=== PATIENT | male | born 1995 | race Caucasian/White ===

== ENCOUNTER 2024-08-16 17:46 | Emergency (ER) | payer BC, SELFPAY ==
--- NOTE | ~2024-08-16 | CT_ITS ---
CLINICAL HISTORY: LLQ pain CT abdomen and pelvis with contrast Comparison: None Findings: No consolidation or effusion. Hepatic steatosis noted. Diffuse small bowel and distal colonic mural thickening, can be seen with mild enterocolitis. Colonic diverticulosis without diverticulitis. The bones are intact. IMPRESSION: Possible mildly diffuse enterocolitis. This document has been electronically signed by: Henrry Cote MD on 08/16/2024 23:04:28
[2024-08-16 17:55] VITALS: BP 156/87; PULSE 88; RESP 16; TEMP 37.1; O2SAT 98; BMI 30.8
--- NOTE | 2024-08-16 18:12 | ED.ABDPAIN ---
HPI - Abdominal Pain General Chief Complaint: Abdominal Pain Stated Complaint: left side stomach lump-UC sent for a CT Time Seen by Provider: 08/16/24 21:32 Source: patient Mode of arrival: ambulatory Limitations: no limitations History of Present Illness ED Provider: SUNITHA HPI narrative: 28 yo male no sig PMH hx of possible IBS prior appendectomy here with c/o LLQ pain since yesterday but no change in stool, no n/v or fevers. He has pain when he walks a little bit but otherwise is okay. He is eating and drinking. No GIB symptoms. He has not had this before. He has not seen a GI doctor MD elicited complaint: abdominal pain Onset (ago): day(s) (1) Pain Consistency: intermittent Location: LLQ Severity: mild Quality: aching Radiation: none Migration to: no migration Exacerbating factors: movement Relieving factors: nothing Associated symptoms: other (loose stools) Related Data Allergies Allergy/AdvReac Type Severity Reaction Status Date / Time amoxicillin Allergy Anaphylaxis Verified 08/16/24 18:01 Penicillins Allergy Anaphylaxis Verified 08/16/24 18:01 Sulfa (Sulfonamide Allergy Diarrhea Verified 08/16/24 18:01 Antibiotics) Review of Systems Review of Systems Constitutional : No Weight loss, No Fever, No Chills ENT/Mouth : No sore throat, No Rhinorrhea Eyes: No Swelling, No Redness Cardiovascular : No Chest Pain, No SOB, NoEdema Respiratory : No Cough, No Sputum, No Wheezing Gastrointestinal : no Nausea, no Vomiting, no Diarrhea, positive abdominal Pain, No Hematochezia, No Melena Genitourinary : No Dysuria, No Urinary Frequency, No Hematuria, No Urgency Musculoskeletal : No joint pain, No Myalgias, No Joint Swelling Skin : No Skin Lesions, No rash Neuro : No Weakness, No Numbness, No Dizziness, No Headache Psych : No Anxiety/Panic, No Depression All other systems reviewed and are negative. [facility] Past Medical History Attestation statement: The following information was validated with the patient. Source: old records reviewed Medical History (Updated 08/16/24 @ 23:21 by Shanda Braxton DO) No pertinent past medical history Surgical History S/P appendectomy Social History Social History Smoked in Last 30 Days: Yes Use of substances other than those prescribed or required for medical reasons: Yes Substance Use Type: Marijuana Advance Directives: No Advance Directives Information Provided: No Do you have a plan to hurt others: No Plan Physical Exam ED Vital Signs: Vital Signs - 24 hr 08/16/24 17:55 08/16/24 21:44 Temperature 98.7 F 98.2 F Pulse Rate 88 62 Respiratory Rate 16 18 Blood Pressure 156/87 H 118/75 Pulse Oximetry 98 100 Oxygen Delivery Method Room Air Room Air BMI result Body Mass Index 30.8 Appearance: Alert. Oriented X3. No acute distress. Eyes: Pupils equal, round and reactive to light. ENT: Pharynx normal. Neck: Normal inspection. Neck supple. CVS: Normal heart rate and rhythm. Pulses normal. Respiratory: No respiratory distress. Breath sounds normal. Abdomen: Soft and very mild ttp with LLQ deep palpation but no rebound or guarding Skin: Skin warm and dry. Normal skin color. Normal skin turgor. Extremities: No lower extremity edema. No calf ttp Neuro: Oriented X 3. No motor deficit. No sensory deficit. CN2-12 intact Course Course Course Narrative: This is an RME performed by Shavonne Hwang CNP: Additional HPI, ROS, PE not included below will be deferred to primary provider. Patient is a 28-year-old male presents emergency department for evaluation of left lower quadrant abdominal pain, onset was yesterday, reports that he feels a palpable lump to this area. Denies associated fevers, chills, nausea, vomiting, diarrhea. Medical Decision Making Medical Decision Making [facility] Narrative: 28 yo male no sig PMH other than prior appendicitis here with c/o LLQ pain yesterday has chronic loose stools no fevers, no symptoms no n/v, denies testicular issues at this time basic labs, CT scan for renal colic/diverticulitis, overall abdomen is benign no rebound or guarding Differential Diagnosis Differential Diagnoses: The differential diagnosis associated with the presentation includes diverticulitis, renal colic, constipation Admission/Observation Consideration of admission/observation: Escalation of care including admission/observation considered other than LFTs and possible mild enterocolitis will refer to GI hold abx no fevers and no wbc count no tachycardia no GIB symptoms he is not toxic Lab Data [facility] Lab Attestation statement: I reviewed the patient's lab results. 08/16/24 18:27 08/16/24 18:27 Labs: Lab Results 08/16/24 08/16/24 Range/Units 18:27 21:47 WBC 5.4 (4.8-10.8) X10*3/uL RBC 5.02 (4.60-5.80) X10*6/uL Hgb 15.3 (14.0-18.0) g/dl Hct 43.1 (42.0-52.0) % MCV 85.9 (80.0-98.0) fL MCH 30.5 (27.0-33.0) pg MCHC 35.5 (31.0-36.0) g/dl RDW 12.2 (11.0-16.0) % Plt Count 262 (160-400) X10*3/uL MPV 10.0 (9.4-12.4) fL Immature Gran % (Auto) 0.4 (0.0-0.4) % Neut % (Auto) 58.1 (45-73) % Lymph % (Auto) 29.2 (20-40) % [place] % (Auto) 9.5 (2-11) % Eos % (Auto) 2.2 (0-4) % Baso % (Auto) 0.6 (0-2) % Lymph # (Auto) 1.6 (1.2-4.9) X10*3/uL [place] # (Auto) 0.5 (0.1-1.2) X10*3/uL Eos # (Auto) 0.1 (0.0-0.4) X10*3/uL Baso # (Auto) 0.0 (0.0-0.2) X10*3/uL Abs Immat Gran (auto) 0.02 (0.00-0.03) X10*3/uL Absolute Neuts (auto) 3.1 (2.0-8.3) x10*3/uL Absolute Nucleated RBC 0.000 (0.0-0.012) X10*3/uL Nucleated RBC % (auto) 0.0 (0.0-0.2) /100WBC Sodium 143 (135-145) mmol/L Potassium 4.2 (3.3-5.1) mmol/L Chloride 108 (96-108) mmol/L Carbon Dioxide 28 (22-29) mmol/L Anion Gap 11 L (12-20) BUN 12 (9-16) mg/dL Creatinine 0.89 (0.5-1.4) mg/dL Estim Creat Clear Calc 160.8 Estimated GFR > 60 Random Glucose 100 (60-115) mg/dL Calcium 9.7 (8.4-10.2) mg/dL Total Bilirubin 0.2 (0.0-1.0) mg/dL Direct Bilirubin < 0.2 (0.0-0.5) mg/dL AST 45 H (5-37) U/L ALT 107 H (0-40) U/L Alkaline Phosphatase 60 (39-117) U/L Total Protein 7.7 (6.5-8.0) g/dL Albumin 4.7 (3.5-5.0) g/dL Urine Color Yellow Urine Appearance Clear Urine pH 5.5 (5.0-9.0) Ur Specific [place] 1.025 (1.005-1.025) Urine Protein Negative (Neg-Trace) mg/dL Urine Glucose (UA) Negative (Negative) mg/dL Urine Ketones Negative (Negative) mg/dL Urine Blood Negative (Negative) Urine Nitrite Negative (Negative) Ur Leukocyte Esterase Negative (Negative) Independent Interpretation I performed an independent interpretation of an: CT Scan (enterocolitis) Radiology Impression Discussion of test interpretation with radiology: I have reviewed the radiologist's reading. Independent Historian Clinical information obtained from an independent historian. History obtained from or confirmed by: Friend Prescription Management I considered prescription management with: Pain Medication, Antibiotic and Other Medications Administered Discontinued Medications Generic Name Dose Route Start Last Admin Trade Name Freq PRN Reason Stop Dose Admin Iohexol 85 ml 08/16/24 22:47 08/16/24 22:47 Iohexol 350 Mg/Ml 100 Ml Infus..Btl IV 08/16/24 22:48 85 ml ONCE ONE Administration Discharge Plan Discharge Clinical Impression: Enterocolitis Abdominal pain Qualifiers: Abdominal location: left lower quadrant Qualified Code(s): R10.32 - Left lower quadrant pain Patient Disposition: Home, Self-Care Instructions: Abdominal Pain (ED), Colitis (ED) Additional Instructions: labs reassuring other than liver enzymes elevated repeat with doctor on Monday avoid tylenol CT scan shows inflammation of intestine and colon this should be self limited RETURN for worsening pain, fevers, vomiting, bloody stools or any other concerns follow up with GI Referrals: [facility] [place] G[facility]ology Services [Provider Group] (call to schedule appointment) Print Language: Greek
[2024-08-16 18:31] LABS: MANUAL DIFF FLAG NO
[2024-08-16 18:33] LABS: Basophils Percent Auto 0.6 % (0-2); Eosinophils Absolute Auto 0.1 X10*3/uL (0.0-0.4); Eosinophils Percent Auto 2.2 % (0-4); Hematocrit 43.1 % (42.0-52.0); Hemoglobin 15.3 g/dl (14.0-18.0); Imm Gran Abs Auto 0.02 X10*3/uL (0.00-0.03); Imm Gran Pct Auto 0.4 % (0.0-0.4); Lymphocytes Absolute Auto 1.6 X10*3/uL (1.2-4.9); Lymphocytes Percent Auto 29.2 % (20-40); Mean Corpuscular HGB Conc 35.5 g/dl (31.0-36.0); Mean Corpuscular Hemoglobin 30.5 pg (27.0-33.0); Mean Corpuscular Volume 85.9 fL (80.0-98.0); Monocytes Absolute Auto 0.5 X10*3/uL (0.1-1.2); Monocytes Percent Auto 9.5 % (2-11); Neutrophils Absolute Auto 3.1 x10*3/uL (2.0-8.3); Neutrophils Percent Auto 58.1 % (45-73); Platelet Count 262 X10*3/uL (160-400); Red Blood Count 5.02 X10*6/uL (4.60-5.80); Red Cell Distribution Width 12.2 % (11.0-16.0); White Blood Count 5.4 X10*3/uL (4.8-10.8)
[2024-08-16 18:53] LABS: Alanine Aminotransferase 107 U/L (0-40); Albumin Level 4.7 g/dL (3.5-5.0); Anion Gap 11 (12-20); Aspartate Amino Transferase 45 U/L (5-37); Bilirubin Direct < 0.2 mg/dL (0.0-0.5); Bilirubin Total 0.2 mg/dL (0.0-1.0); Blood Urea Nitrogen 12 mg/dL (9-16); Calcium 9.7 mg/dL (8.4-10.2); Carbon Dioxide 28 mmol/L (22-29); Chloride 108 mmol/L (96-108); Creatinine Clr Calc Pharmacy 160.8; Estimated Glomerular Filt Rate > 60; Glucose Random 100 mg/dL (60-115); Potassium 4.2 mmol/L (3.3-5.1); Sodium 143 mmol/L (135-145); Total Protein 7.7 g/dL (6.5-8.0)
[2024-08-16 19:40] LABS: Alkaline Phosphatase 60 U/L (39-117)
[2024-08-16 21:44] VITALS: BP 118/75; PULSE 62; RESP 18; TEMP 36.8; O2SAT 100
--- NOTE | 2024-08-16 21:49 | MHC.EDTECH ---
Patient brought in from the waiting room,changed into hospital attire,vitals taken,patient ambulated to the bathroom with a steady gait,urine sample obtained and sent to lab
[2024-08-16 21:57] LABS: Appearance Urine Clear; Color Urine Yellow; Glucose Urine UA Negative (Negative); Leukocyte Esterase Urine Negative (Negative); Nitrite Urine Negative (Negative); PH 5.5 (5.0-9.0); Specific Gravity - Urine 1.025 (1.005-1.025); Urine Blood Negative (Negative); Urine Ketones Negative (Negative); Urine Protein Negative (Neg-Trace)
--- NOTE | 2024-08-16 22:20 | PC.NURSE ---
this rn placed 20g iv in r ac pt tolerated well awaiting to be taken to CT scan
[2024-08-16] MEDS: iohexoL 350 MG/ML 100 ML INFUS..BTL 85 ML IV (22:47)
[2024-08-16 23:30] VITALS: BP 119/74; PULSE 62; RESP 16; TEMP 36.6; O2SAT 98
--- NOTE | 2024-08-16 23:34 | PC.NURSE ---
iv removed at discharge pt calm and cooperative pt at bedside. pt verbalized understanding of discharge plan
[2024-08-16 23:35] VITALS: BP 119/74; PULSE 62; RESP 16; TEMP 36.6; O2SAT 98
== END 2024-08-16 23:36 | disposition home or self-care (01) ==
PROVIDERS: Nurse Practitioner Family; Emergency Provider Emergency Medicine
DX: K52.9 Noninfective gastroenteritis and colitis, unspecified (principal); R10.2 Pelvic and perineal pain; R10.32 Left lower quadrant pain; Z79.899 Other long term (current) drug therapy
CPT/HCPCS: 36415; 74177; 80048; 80076; 81003; 85025; 99284; Q9967

== ENCOUNTER → 2024-08-16 21:56 | Outpatient (BNV) | payer BC, SELFPAY | PROVIDERS: Emergency Provider Emergency Medicine; Visit Provider Radiology Diagnostic Radiology | DX: R10.32 Left lower quadrant pain (principal) | CPT/HCPCS: 74177 ==

== ENCOUNTER 2025-06-05 09:19 | Outpatient (AMB) | payer BC, SELFPAY ==
--- NOTE | 2025-06-05 09:46 | A.OFFPC_ITS ---
Vital Signs 06/05/25 09:53 Height 6 ft 2.8 in Weight 240 lb BMI 30.2 BP 122/80 Blood Pressure Location Lt brachial Position Sitting Respiration 16 Pulse 72 Pulse Source Pulse Oximeter Temp 97.7 F Temp Source Temporal Artery Scan Pulse Oximetry (%) 96 Oxygen Delivery Method Room Air Intake Visit Reasons: Establish Care Transportation Driver Required: No Accompanied by: Self / Same As Patient Allergies amoxicillin Allergy (Verified 06/05/25 10:11) Anaphylaxis Penicillins Allergy (Verified 06/05/25 10:11) Anaphylaxis Sulfa (Sulfonamide Antibiotics) Allergy (Verified 06/05/25 10:11) Diarrhea Medication List - Last Reconciled 06/05/25 by Iwona Lombardo PA-C escitalopram oxalate 5 mg PO DAILY famotidine 40 mg PO BEDTIME meloxicam 15 mg PO DAILY propranolol 10 mg PO BID PRN sucralfate PO QID Tobacco use date assessed: 06/05/25 Dental Screening Dental Screen Date: 06/05/25 Did you have a dental visit in the last 12 months?: Yes Did you have a dental problem in the last 6 months where you did not have access to dental care?: No Was dental information given to patient?: Patient has dentist HPI Establish Care HPI Details The patient is a 29-year-old male presenting for a new patient appointment and evaluation of gastrointestinal issues. He reports having his last physical within the past year. In August, the patient went to the [facility] for left-sided abdominal pain associated with a palpable bump. At that time, it was thought to be related to food poisoning, and labs revealed elevated liver enzymes, with an AST of 45 and an ALT of 107. Follow-up blood work showed the ALT decreased to 84 before rising again to 102 in January, while the AST normalized to 32 before increasing to 41. A CT scan of the abdomen and pelvis from August showed a fatty liver and possible mild diffuse enterocolitis. The patient has a lifelong history of chronic diarrhea, which has seen some improvement with psyllium, though his bowel movements remain abnormal and are sometimes skinny. He has been evaluated by a metal container maker at [facility] and underwent a colonoscopy in November, which was clear and ruled out Crohn's disease, with a recommended 15-year follow-up interval. He also had chest pain radiating to his shoulder, consistent with GERD, which has resolved since starting famotidine and sucralfate. 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 His current medications are escitalopram, famotidine, meloxicam, propranolol, and sucralfate. Lab work from January showed a slightly elevated LDL of 140. 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 - Marital Status: for almost 10 years. - Diet: Acknowledges an [place] diet of greasy foods, which may contribute to his fatty liver. - Family History: Reports a history of a lcoholism on his father's side of the family. [facility] Medical History (Updated 06/05/25 @ 11:31 by Iwona Lombardo PA-C) Healthcare maintenance Lipoma of abdominal wall Urinary hesitancy GERD (gastroesophageal reflux disease) Elevated liver enzymes Diarrhea Left sided abdominal pain No pertinent past medical history Surgical History History of colonoscopy (~11/2024) S/P appendectomy Family History Mother No problems noted. Father BP (high blood pressure) High cholesterol Social History Housing: Apartment Alcohol intake: current Alcohol intake frequency: a few times a month Patient Tobacco Use Status: Former Tobacco user service: No Current occupational status: employed Cognitive needs: No Hearing needs: No Vision needs: No Questionnaire PHQ-9 Over the last 2 weeks, how often have you been bothered by any of the following problems? 1. Little interest or pleasure in doing things: not at all 2. Feeling down, depressed, or hopeless: not at all 3. Trouble falling or staying asleep, or sleeping too much: not at all 4. Feeling tired or having little energy: not at all 5. Poor appetite or overeating: not at all 6. Feeling bad about yourself - or that you are a failure or have let yourself or your family down: not at all 7. Trouble concentrating on things, such as reading the newspaper or watching television: not at all 8. Moving or speaking so slowly that other people could have noticed. Or the opposite - being so fidgety or restless that you have been moving around a lot more than usual: not at all 9. Thoughts that you would be better off or of hurting yourself in some way: not at all Total score: 0 Depression Screening Interpretation: Negative Depression Screening Done: Yes 38046 - PHQ-9 Billing: Yes Source: Developed by Drs. Mike Foster, Mitali Reece, Kristopher Garcia and colleagues, with an educational boaz from [employer]. Thrive Questionnaire Date Thrive assessed: 06/05/25 I am a: Patient What is your living situation today?: I have a steady place to live Within the past 12 months, did the food you bought not last and you didn't have the money to get more?: Never true Within the past 12 months, did you worry whether your food would run out before you got money to buy more?: Never true Do you have trouble paying for medicines?: No Do you have trouble getting transportation to medical appointments?: No Do you have trouble paying your heating and electricity bill?: No Do you have trouble taking care of your child, family member or friend?: No Do you have trouble with day-to-day activities such as bathing, preparing meals, shopping, managing finances, etc.?: No Are you currently unemployed and looking for a job?: No Are you interested in more education?: No Please select the resources that you would like help with: None THRIVE Score: 0 AUDIT C Alcohol Use Questionnaire (AUDIT-C) 1. How often do you have a drink containing alcohol?: 2-4 times a month 2. How many drinks containing alcohol do you have on a typical day when you are drinking?: 1 or 2 3. How often do you have six or more drinks on one occasion?: Never Total Score: 2 Score Reviewed/Action Taken: No TINY-7 AMB Questionnaire TINY-7 Date TINY - 7 assessed: 06/05/25 Feeling nervous, anxious, or on edge: 3 = Nearly every day Not being able to stop or control worryin = Several days Worrying too much about different things: 0 = Not at all Trouble relaxin = Several days Being so restless that it is hard to sit still: 3 = Nearly every day Becoming easily annoyed or irritable: 1 = Several days Feeling afraid as if something awful might happen: 0 = Not at all Total TINY-7 score (0-4 normal; 5-9 mild; 10-14 moderate; 15-21 severe): 9 Source: Developed by Drs. Mike Foster, Mitali Reece, Kristopher Garcia and colleagues, with an educational boaz from [employer]. TINY-7 Assessment Billing TINY-7 Assessment Tool: TINY-7 Assessment 67202 Review of Systems Const Details: - CONSTITUTIONAL: Denies unintentional weight loss. - GASTROINTESTINAL: Reports left-sided abdominal pain with a palpable bump, though the pain has improved. - Reports lifelong chronic diarrhea, with bowel movements that are sometimes skinny. - Denies black or bloody stools. - Reports a history of chest pain radiating to the back of the shoulder, consistent with GERD, which has improved with medication. - GENITOURINARY: Reports sometimes not feeling able to completely empty his bladder, particularly at night. - MUSCULOSKELETAL: Reports chronic inflammation in both hips. All systems reviewed & are unremarkable except as noted in HPI and below Physical exam (Primary Care) Vital Signs: Last Vital Signs Temp 97.7 F 06/05/25 09:53 Pulse 72 06/05/25 09:53 Resp 16 06/05/25 09:53 BP 122/80 06/05/25 09:53 Pulse Ox 96 06/05/25 09:53 Oxygen Delivery Method Room Air 06/05/25 09:53 Care Plan Goal for BP management: <140/90 at Goal BMI result Body Mass Index 30.2 BMI Assessment/Plan discussion: High BMI High, discussed plan: lifestyle, weight reduction, dietary, physical activity, alcohol moderation and other Tobacco/Smoking Status: Tobacco use Status Tobacco use date assessed 06/05/25 06/05/25 09:51 Patient Tobacco Use Status Former Tobacco user 06/05/25 10:01 PHQ-9: PHQ-9 Score PHQ-9: Total score 0 06/05/25 09:51 Depression Screening Interpretation: Negative Thrive Assessment: Date of Thrive Assessment Date Thrive assessed 06/05/25 06/05/25 09:51 Const Other: Appearance: Alert. Oriented X3. No acute distress. Head: Normal external exam. Normocephalic. Atraumatic. Eyes: Pupils are equal, round, and reactive to light. Extraocular movements intact. Conjunctiva and sclera normal. Eyelids normal. Ears: External auditory canal normal. Tympanic membranes normal. Throat: Pharynx normal. Uvula midline. Moist mucous membranes. Neck: Normal inspection. Neck supple. Full range of motion. No adenopathy. Thyroid Normal. No meningeal signs. No neck mass noted. Cardiovascular: Normal heart rate and rhythm. Heart sound normal. No murmurs noted. Pulses normal throughout. Respiratory: No respiratory distress. Painless inspiration. Breath sounds normal. No wheezes/rales/rhonchi noted. Chest nontender. No accessory muscle usage noted or decreased air movement noted. Abdomen: Soft and nontender. Bowel sounds normal in all 4 quadrants. No distention noted. No organomegaly noted. A bump noted on the left side of the abdomen, possibly a small cyst under the fat tissue muscle. Back: No costovertebral angle tenderness. Full range of motion noted. Skin: Skin warm and dry. Normal skin color. Normal skin turgor. No rashes/lesions/lacerations noted. Extremities: No lower extremity edema. Extremities exhibit normal range of motion. Neuro: Oriented X 3. No motor deficit. No sensory deficit. Reflexes normal. Office Procedures Flu Questionnaire Does the patient have a severe egg allergy?: No Does the patient have severe life threatening allergies?: No Does the patient have a fever or illness today?: No Has the patient ever had Guillain-Snelling Syndrome?: No Has the patient ever had any past reaction to a flu shot?: No Immunizations Fluarix [id number] (PF) 45 mcg (15 mcg x 3)/0.5 mL IM syringe Performing Provider: Iwona Lombardo PA-C [facility] [place] [facility] Documented (not given) by: DAVID Acevedo on 06/05/25 10:01 Reason Not Given: Received Previously Results Reviewed Results Reviewed: - Labs (August): CBC, electrolytes, and kidney function were normal. - AST was 45 (normal <37) and ALT was 107 (normal 40-50). - Bilirubin and alkaline phosphatase were normal. - Labs (Follow-up post-August): Glucose was slightly high. - ALT was 84 and AST was 32 (normal). - Labs (January): ALT increased to 102 and AST increased to 41. - LDL was 140, non-HDL was 152, total cholesterol was 199, and HDL was 47. - Sodium was slightly high at 145 and anion gap was 19. - Imaging (August): CT of abdomen and pelvis showed fatty liver and possible mild diffuse enterocolitis. - Procedures (November): Colonoscopy was clear, with next one recommended in 15 years. Coding Level of Care Code New Pt Level 4 (83648) Complex EM visit Add On G2211 Diagnoses Elevated liver enzymes R74.8 Diarrhea R19.7 GERD (gastroesophageal reflux disease) K21.9 Urinary hesitancy R39.11 Lipoma of abdominal wall D17.1 Healthcare maintenance Z00.00 Additional Codes PHQ-9 - 01681 - PHQ-9 Billing: Yes ([id number]) TINY-7 Assessment Billing - TINY-7 Assessment Tool: TINY-7 Assessment 26415 ([id number]) Time Spent (min) 60 Assessment & Plan Assessment & Plan (1) Elevated liver enzymes: Code(s): R74.8 - Abnormal levels of other serum enzymes Category: Medical Plan: The patient has fluctuating elevated liver enzymes and a history of fatty liver on a prior CT scan, likely related to diet. The plan is to repeat liver function tests, order a hepatitis panel to rule out infectious causes, and order an abdominal ultrasound to further evaluate the liver. (2) Diarrhea: Code(s): R19.7 - Diarrhea, unspecified Category: Medical Plan: The patient has a lifelong history of diarrhea, and while a colonoscopy was normal, the underlying etiology is still unclear. A stool panel will be ordered to test for celiac disease and other potential causes. (3) GERD (gastroesophageal reflux disease): Code(s): K21.9 - Gastro-esophageal reflux disease without esophagitis Category: Medical Plan: The patient's symptoms of chest pain have responded well to medications prescribed by his metal container maker. He will continue his current regimen of famotidine and sucralfate. (4) Urinary hesitancy: Code(s): R39.11 - Hesitancy of micturition Category: Medical Plan: The patient reports symptoms of incomplete bladder emptying, suggesting possible benign prostatic hyperplasia (BPH). A prostate-specific antigen (PSA) level will be checked, and he will start a trial of Tamsulosin (Flomax) to alleviate his symptoms. (5) Lipoma of abdominal wall: Code(s): D17.1 - Benign lipomatous neoplasm of skin and subcutaneous tissue of trunk Category: Medical Plan: A tender, superficial mass was palpated on the left abdomen, consistent with a lipoma. This area will be further evaluated during the planned abdominal ultrasound. (6) Healthcare maintenance: Code(s): Z00.00 - Encounter for general adult medical examination without abnormal findings Category: Medical Plan: For this new patient visit, baseline non-fasting labs will be ordered, including a magnesium, vitamin B12, vitamin D, thyroid panel, and a diabetes screen. A basic urinalysis will also be performed. A follow-up visit is scheduled in 2-3 months to review the results. Plan Plan Patient was informed and verbally consented to the use of an ambient scribe for clinic note documentation during this visit. 1. Elevated Liver Enzymes/Non-Alcoholic Fatty Liver Disease The patient has fluctuating elevated liver enzymes and a history of fatty liver on a prior CT scan, likely related to diet. The plan is to repeat liver function tests, order a hepatitis panel to rule out infectious causes, and order an abdominal ultrasound to further evaluate the liver. 2. Chronic Diarrhea The patient has a lifelong history of diarrhea, and while a colonoscopy was normal, the underlying etiology is still unclear. A stool panel will be ordered to test for celiac disease and other potential causes. 3. Gastroesophageal Reflux Disease The patient's symptoms of chest pain have responded well to medications prescribed by his metal container maker. He will continue his current regimen of famotidine and sucralfate. 4. Urinary Hesitancy The patient reports symptoms of incomplete bladder emptying, suggesting possible benign prostatic hyperplasia (BPH). A prostate-specific antigen (PSA) level will be checked, and he will start a trial of Tamsulosin (Flomax) to alleviate his symptoms. 5. Abdominal Wall Lipoma A tender, superficial mass was palpated on the left abdomen, consistent with a lipoma. This area will be further evaluated during the planned abdominal ultrasound. 6. Health Maintenance For this new patient visit, baseline non-fasting labs will be ordered, including a magnesium, vitamin B12, vitamin D, thyroid panel, and a diabetes screen. A basic urinalysis will also be performed. A follow-up visit is scheduled in 2-3 months to review the results. I introduced myself and explained the use of an AI scribe for notetaking during the visit. I reviewed the patient's prior lab work and clarified that his liver enzymes were elevated but not to the degree he had initially thought. We discussed the fluctuating nature of his liver enzymes and the finding of fatty liver on his prior CT, noting this could be related to diet. I outlined a plan for further investigation, including repeating liver enzymes, performing a hepatitis panel, checking various baseline levels (magnesium, vitamins, thyroid, prostate), conducting a diabetes screen, and performing a urinalysis and a stool panel. I also ordered an abdominal ultrasound to re-e valuate his liver. I explained that the blood work does not require fasting. We discussed his urinary symptoms, and I recommended a trial of Tamsulosin, which he agreed to try. I offered STD testing, which he declined due to his long-term monogamous marriage. I palpated the bump on his abdomen and reassured him it felt like a superficial lipoma. I recommended a follow-up appointment in approximately 2-3 months to review all results and advised him to call if the ultrasound is not scheduled within a month or if his symptoms worsen. Orders: Orders Magnesium Today Z00.00 - Encounter for general adult medical examination without abnormal findings Vitamin B12 and Folate Today Z00.00 - Encounter for general adult medical examination without abnormal findings Vitamin D 25-OH Total Today Z00.00 - Encounter for general adult medical examination without abnormal findings TSH reflex Free T4 Today Z00.00 - Encounter for general adult medical examination without abnormal findings US abdomen complete Today R10.9 - Unspecified abdominal pain, R19.7 - Diarrhea, unspecified Transglutaminase Ab IgG 1 Day R14.0 - Abdominal distension (gaseous) Transglutaminase IgA 1 Day R14.0 - Abdominal distension (gaseous) Influenza [id number] Immunization Today Z23 - Encounter for immunization Comprehensive Met. Panel Today Z00.00 - Encounter for general adult medical examination without abnormal findings Hepatitis A,B,C Profile Today Z00.00 - Encounter for general adult medical examination without abnormal findings PSA,Total (Free>4and<10) Today Z00.00 - Encounter for general adult medical examination without abnormal findings Hemoglobin A1c Today Z00.00 - Encounter for general adult medical examination without abnormal findings UA CC w/rflx Micro + Cult Today Z00.00 - Encounter for general adult medical examination without abnormal findings GI Panel Today R10.9 - Unspecified abdominal pain, R19.7 - Diarrhea, unspecified Celiac Disease Panel Today R10.9 - Unspecified abdominal pain Patient Instructions: - You may go to the lab for blood work at your convenience; you do not need to fast beforehand. - When you go for your blood work, you will also need to provide a urine sample and a stool sample. - The radiology department will call you to schedule an appointment for an abdominal ultrasound. - If you do not receive a call within one month, please contact our office. - We have prescribed Tamsulosin (Flomax) to help with your urinary symptoms. - Continue taking your current medications for heartburn as prescribed by your metal container maker. - Please schedule a follow-up appointment in about two to three months (around August) to go over your test results. - If your symptoms get worse before your next appointment, please contact us or return to the clinic.
[2025-06-05 09:53] VITALS: BP 122/80; PULSE 72; RESP 16; TEMP 36.5; O2SAT 96; BMI 30.2
--- OUTSIDE RECORDS SUMMARY | 2025-06-05 10:36 | XMS_ITS | Clinical Summary ---
Author Organization [facility] Address [address] [place] [id number] Phone Care Team Providers Care Wagon Winder Name Role Phone Mani Cummings Oh [place] Primary Care Provider [phone] Allergies Active Allergy Reactions Criticality Noted Date Comments Penicillins Rash 12/07/2006 Sulfa (Sulfonamide Antibiotics) Other (See Comments) 06/03/2009 poss serum sickness Medications No known medications Active Problems No known active problems Immunizations Immunization Administration Dates Next Due DTaP, unspecified formulation 12/13/1999 ,06/12/1996,07/04/1995,1994,01/05/1995 HPV,quadrivalent 12/03/2012 Hepatitis A, ped/adol, 2 dose 12/03/2012 Hepatitis B, unspecified formulation 09/28/1995, 01/16/1995,1994 Hib, unspecified formulation 06/12/1996, 05/11/1995,03/10/1995,1994 Influenza quadrivalent nasal 06/02/2012 Influenza, Unspecified Formulation 05/13/2011 MMR 12/13/1999,06/12/1996 Meningococcal MCV4P 05/13/2011,01/18/2007 Polio, Unspecified Formulation 0,05/11/1995,03/10/1995,1994 Tdap 01/23/2006 Varicella 01/02/2013,12/03/1997 Family History Medical History Relation Comments Hyperlipidemia Father Hyperlipidemia Relation Status Comments Father Social History Tobacco Use Types Packs/Day Years Used Date Smoking Tobacco: Every Day Pipe Smokeless Tobacco: Never Alcohol Use Standard Drinks/Week Comments Yes 0 (1 standard drink = 0.6 oz pur e alcohol) Education Answer Date Recorded Are you interested in more education? Not on bao e 12/04/2022 Are you concerned about learning? Not on file 12/04/2022 No 12/04/2022 No 12/04/2022 Digital Access Answer Date Recorded No 12/31/2022 No 12/31/2022 No 12/31/2022 Reliable internet access at home? Not on file 12/31/2022 Device with a working camera? Not on file Sex and Gender Information Value Date Recorded Sex Assigned at Not on file Legal Sex Male 5:21 PM EST Gender Identity Not on file Sexual Orientation Not on file Last Filed Vital Signs Vital Sign Reading Time Taken Comments Blood Pressure 124/78 06/01/2021 12:16 PM EDT Pulse 66 06/01/2021 12:16 PM EDT Temperature 36.3 C (97.4 F) 06/01/2021 12:16 PM EDT Respiratory Rate 18 06/01/2021 12:16 PM EDT Oxygen Saturation 99% 06/01/2021 12:16 PM EDT Inhaled Oxygen Concentration - - Weight 90.7 kg (200 lb) 06/01/2021 12:16 PM EDT Height 190.5 cm (6' 3 ) 06/01/2021 12:16 PM EDT Body Mass Index 25 06/01/2021 12:16 PM EDT Plan of Treatment Upcoming Encounters Date Type Department Care Team (Late st Contact Info) Description 09/11/2025 8:45 AM EST Office Visit [facility] [address] [place] [address] Unknown, Unknown, MD Durham, Tanya Whatley, WINNIE [address] [place] [address] Health Maintenance Due Date Last Done Comments DEPRESSION SCREENING 2006 SMOKING Hx and SMOKELESS TOBACCO SCREENING 11/16/2007 HEPATITIS C SCREENING 2012 HIV ONE-TIME SCREENING (18-65 YEARS) 2012 HEPATITIS A VACCINES (2 of 2 - 2-dose series) 06/04/2013 12/03/2012 PNEUMOCOCCAL VACCINES (0-49 years) (1 of 2 - PCV) 2013 Adult Td,Tdap Booster 01/24/2016 01/23/2006 INFLUENZA VACCINE (#1) 2025 , 06/02/2012, 05/13/2011 COVID-19 VACCINE (2 - season) 2025 06/14/2021 HIB VACCINES Completed 06/12/1996, 12/1994, 03/10/1995, Additional history exists MENINGOCOCCAL VACCINES (ACWY) Completed 05/13/2011, 01/18/2007 MENINGOCOCCAL VACCINES (B) Aged Out N o longer eligible based on patient's age to complete this topic Medical Devices Not on file Insurance [facility] OUT OF STATE PPO [place] OUT OF STATE PPO [employer] [place] OUT OF STATE PPO [place]UE [place] OUT OF STATE PPO [facility] PPO Care Teams Wagon Winder Relationship Specialty Start Date End Date Mani Cummings DO [address] [id number] PCP - General Family Medicine 10/14/24 Additional Source Comments The information contained in this document represents components of the legal health record. It is not the complete legal health record.[facility]
--- OUTSIDE RECORDS SUMMARY | 2025-06-05 10:36 | XMS_ITS | Clinical Summary ---
Author Organization [facility] Address [address] [place] [id number] Phone Care Team Providers Care Supervisor Winding Department Name Role Phone Imtiaz Turner MD Primary Care Provider Unavaila ble Allergies Active Allergy Reactions Criticality Noted Date Comments Penicillin G Sulfa Antibiotics Medications No known medications Active Problems Problem Noted Date Diagnosed Date Dermatitis 03/05/2016 Immunizations Immunization Administration Dates Next Due DTaP 12/13/1999, 6,07/04/1995,03/07,01/05/1995 HPV, Quadrivalent 12/03/2012 Hep A, ped/adol 12/03/2012 Hep B, ped/adol 09/28/1995,01/16/1995,1994 Hib (PRP-T) 06/12/1996, 5,03/10/1995,01/16 IPV 12/13/1999, 5,03/10/1995,01/16 Influenza, injectable,ted valent, preservative free, pediatric 06/02/2012,05/13/2011 MMR 12/13/1999,06/12/1996 Meningococcal Conj (Menactra) MCV4P 05/13/2011,0 01/18/2007 Tdap 01/23/2006 Varicella 01/02/2013,12/03/1997 Social History Tobacco Use Types Packs/Day Years Used Date Smoking Tobacco: Never Assessed Sex and Gender Information Value Date Recorded Sex Assigned at Not on file Legal Sex Male 9:16 AM EST Gender Identity Not on file Sexual Orientation Not on file Last Filed Vital Signs Vital Sign Reading Time Taken Comments Blood Pressure 106/62 01/24/2017 9:15 AM EDT Pulse - - Temperature 36.1 C (97 F) 01/24/2017 9:15 AM EDT Respiratory Rate - - Oxygen Saturation 99% 01/24/2017 9:15 AM EDT Inhaled Oxygen Concentration - - Weight 88.6 kg (195 lb 4 oz) 01/24/2017 9:15 AM EDT Height 186.1 cm (6' 1.25 ) 10/10/2012 12:[address] Body Mass Index - - Plan of Treatment Health Maintenance Due Date Last Done Comments HPV Vaccines (2 - Male 3-dose series) 12/31/2012 12/03/2012 Hepatitis A Vaccines (2 of 2 - 2-dose series) 06/04/2013 12/03/2012 DTaP,Tdap,and Td Vaccines (7 - Td or Tdap) 01/24/2016 01/23/2006, 12/13/1999, 06/12/1996, Additional history exists Influenza Vaccines (#1) 2025 06/02/2012, 05/13 COVID-19 Vaccine ( season) 2025 Hepatitis B Vaccines Completed 09/28/1995, 01/16/1995, 1994 HIB Vaccines Completed 06/12/1996, 12/1994, 03/10/1995, Additional history exists IPV Vaccines Completed 12/13/1999, 12/1994, 03/10/1995, Additional history exists MMR Vaccines Completed 12/13/1999, 06/12/1996 Meningococcal Vaccine Completed 05/13/2011, 007 Varicella Vaccines Completed 01/02/2013, 12/03/1997 Men B Vaccine Aged Out No longer elig ible based on patient's age to complete this topic Pneumococcal Vaccine Aged Out No long er eligible based on patient's age to complete this topic Insurance [email or web address] Care Teams Supervisor Winding Department Relationship Specialty Start Date End Date Imtiaz Turner MD PCP - General Pediatrics 07/07/17
== END 2025-06-05 10:30 | disposition home or self-care (01) ==
LOC: HO.HMCSH 09:19
PROVIDERS: PCP Physician Assistant Medical; Visit Provider Physician Assistant Medical
DX: R74.8 Abnormal levels of other serum enzymes (principal); R19.7 Diarrhea, unspecified; K21.9 Gastro-esophageal reflux disease without esophagitis; R39.11 Hesitancy of micturition; D17.1 Benign lipomatous neoplasm of skin and subcutaneous tissue of trunk; Z00.00 Encounter for general adult medical examination without abnormal findings; Z23 Encounter for immunization

== ENCOUNTER → 2025-06-05 09:19 | Outpatient (BNVA) | payer BC, SELFPAY | PROVIDERS: PCP Physician Assistant Medical; Visit Provider Physician Assistant Medical | DX: Z00.00 Encounter for general adult medical examination without abnormal findings (principal); K52.9 Noninfective gastroenteritis and colitis, unspecified; K21.9 Gastro-esophageal reflux disease without esophagitis; R74.8 Abnormal levels of other serum enzymes; R39.11 Hesitancy of micturition; D17.1 Benign lipomatous neoplasm of skin and subcutaneous tissue of trunk; Z28.89 Immunization not carried out for other reason | CPT/HCPCS: 90471; 96127 ==

== ENCOUNTER 2025-06-07 13:20 | Outpatient (REF) | payer BC, SELFPAY ==
--- OUTSIDE RECORDS SUMMARY | 2025-06-07 13:22 | XMS_ITS | Clinical Summary ---
Author Organization [facility] Address [facility] [employer] [address] [address] Phone Care Team Providers Care Packaging Machine Operator Name Role Phone Mani Cummings Oh [place] Primary Care Provider Allergies Active Allergy Reactions Criticality Noted Date [...] Description 09/11/2025 8:45 AM EST Office Visit [facility] [address] [place] [address] Unknown, Unknown, MD [place], Tanya Whatley, WINNIE [address] [place] [address] Health Maintenance Due Date Last Done Comments [...] topic Medical Devices Not on file Insurance [facility] [employer] OUT OF STATE PPO [employer] OUT OF STATE PPO [employer] OUT OF STATE PPO [employer] OUT OF STATE PPO [facility] PPO Care Teams Packaging Machine Operator Relationship Specialty Start Date End Date Mani Cummings DO [address] [address] PCP - General Family Medicine 10/14/24 Additional Source Comments The information contained in this document represents components of the legal health record. It is not the complete legal health record.[facility]
--- OUTSIDE RECORDS SUMMARY | 2025-06-07 13:22 | XMS_ITS | Clinical Summary ---
Author Organization [facility] Address [address] [place] [phone] Phone Care Team Providers Care Foundation Coordinator Name Role Phone Imtiaz Turner MD Primary [...] patient's age to complete this topic Insurance Monitoring Division Care Teams Foundation Coordinator Relationship Specialty Start Date End Date Imtiaz Turner MD PCP - General Pediatrics 07/07/17
[2025-06-07 15:24] LABS: Appearance Urine Turbid; Glucose Urine UA Negative (Negative); PH 6.0 (5.0-9.0); Specific Gravity - Urine 1.025 (1.005-1.025)
[2025-06-07 15:38] LABS: Alanine Aminotransferase 108 U/L (0-40); Albumin Level 4.9 g/dL (3.5-5.0); Alkaline Phosphatase 64 U/L (39-117); Anion Gap 10 (12-20); Aspartate Amino Transferase 42 U/L (5-37); Blood Urea Nitrogen 11 mg/dL (9-16); Calcium 9.2 mg/dL (8.4-10.2); Carbon Dioxide 27 mmol/L (22-29); Chloride 108 mmol/L (96-108); Estimated Glomerular Filt Rate > 60; Magnesium 2.4 mg/dL (1.6-2.6); Potassium 4.2 mmol/L (3.3-5.1); Sodium 141 mmol/L (135-145); Total Protein 7.3 g/dL (6.5-8.0)
[2025-06-07 16:08] LABS: PSA,Total (Free>4and<10) 0.53 ng/mL (0.00-4.00)
[2025-06-07 16:21] LABS: Folate 10.6 ng/mL (> or = 4.0); Vitamin B12 301 pg/mL (200-900)
[2025-06-09 05:47] LABS: HBS Num1 0.48 mIU/mL (0-7.99); HBc Num1 0.10 S/CO (0.00-0.79); HBsAGNum1 0.36 S/CO (0.00-0.99); Hepatitis A Antibody IgM 0.19 Index (0-0.79); Hepatitis B Surface Antigen Negative (Negative); ~HepC Num1 0.06 S/CO (0.00-0.79); ~Hepatitis A Antibody IgM Nonreactive (Nonreactive); ~Hepatitis B Surface Antibody NONREACTIVE (Nonreactive); ~Hepatitis C Antibody Nonreactive (Nonreactive)
[2025-06-10 19:58] LABS: Immunoglobulin A 108 mg/dL (47-310); Transglutaminase Ab IgG <1.0 U/mL
== END 2025-06-07 13:21 | disposition home or self-care (01) ==
LOC: HO.HMGCLDS 13:20
PROVIDERS: PCP Physician Assistant Medical; Visit Provider Physician Assistant Medical
DX: Z00.00 Encounter for general adult medical examination without abnormal findings (principal); R14.0 Abdominal distension (gaseous); R10.9 Unspecified abdominal pain; Z12.5 Encounter for screening for malignant neoplasm of prostate; Z13.1 Encounter for screening for diabetes mellitus; Z13.29 Encounter for screening for other suspected endocrine disorder
CPT/HCPCS: 36415; 80053; 81003; 82306; 82607; 82746; 82784; 83036; 83735; 84153; 84443; 86364; 86704; 86706; 86709; 86803; 87340